=== PATIENT | female | born 1955 | race Caucasian/White ===

== ENCOUNTER → 2022-03-26 09:53 | Outpatient (CLI) | payer MEDICARE, SELFPAY ==
--- NOTE | ~2022-03-26 | CT_ITS ---
EXAMINATION: CT sinus wo con DATE: 03/26/2022 10:18 INDICATION: Chronic sinusitis TECHNIQUE: Computed tomography (CT) of the paranasal sinuses was performed without contrast. Iterativ e reconstruction technique was employed. Exam dose: 271.16 mGy-cm total exam DLP. COMPARISON: None FINDINGS: There is leftward deviation of the nasal septum. Intralamellar cell of both middle nasal turbinates, more prominent on the right. Symmetric moderate p rominence of the nasal turbinates. The ostiomeatal units are patent bilaterally. The paranasal sinuses and mastoid air cells are normally developed and aerated. IMPRESSION: Leftward deviation of nasal septum Moderate prominence of the nasal turbinates Intralamellar cell of both middle nasal turbinates Patent paranasal sinuses, ostiomeatal units and mastoid air cells. Reviewed, dictated and finalized at [facility]. Reviewed, dictated and finalized at [facility].
== END ==
PROVIDERS: PCP Family Medicine; Visit Provider Allergy & Immunology
DX: J32.9 Chronic sinusitis, unspecified (principal); J34.2 Deviated nasal septum
CPT/HCPCS: 70486